=== PATIENT | female | born 1960 | race Caucasian/White ===

== ENCOUNTER 2017-03-27 12:37 | Emergency (ER) | payer SELFPAY ==
[~2017-03-27] VITALS: Ht 154.9 cm; Wt 74.1 kg
[2017-03-27 13:43] VITALS: BP 129/85
[2017-03-27] MEDS ORDERED: ASPIRIN 81 MG TABLET CHEW PO ONE (14:00)
[2017-03-27] MEDS ORDERED: SODIUM CHLORIDE FLUSH 10ML SYR IVF ONE (14:00)
[2017-03-27] MEDS ORDERED: ASPIRIN 81 MG TABLET CHEW ONE (14:07)
[2017-03-27 14:23] LABS: ASPARTATE AMINO TRANSFERASE 13 U/L (15-37); BLOOD UREA NITROGEN 13 mg/dL (7-18)
[2017-03-27 14:29] LABS: IS PT STATUS REG ER OR PRE ER? YES
== END 2017-03-27 15:33 | disposition home or self-care (01) ==
LOC: ED 15:25
DX: R07.89 Other chest pain (principal)
CPT/HCPCS: 36415; 71010; 80053; 83690; 84484; 85025; 85379; 93005

== ENCOUNTER → 2017-05-28 | Outpatient (CLI) | payer OTHER | END | disposition home or self-care (01) | LOC: CFH 13:21 | DX: D49.3 Neoplasm of unspecified behavior of breast (principal) | CPT/HCPCS: 76642; G0204 ==